=== PATIENT | male | born 1930 | race Caucasian/White ===

== ENCOUNTER 2017-08-06 15:31 | Emergency (ER) | payer MEDICARE, BC, OTHER ==
[~2017-08-06] VITALS: Ht 182.9 cm; Wt 90.0 kg
[~2017-08-06 15:31] MED LIST: ASPI-1071 PO; COU1T PO; COU5T PO; CYCL5TAB PO; DOCU-28 PO; FINA5TAB11 PO; FLO0.4C PO; MEMA5TAB PO; OLME5TAB3 PO; OXYB5TAB11 PO; SENN-139 PO; SIMV20TA5 PO; SOTA80TA69 PO; [UNRECOGNIZED DRUG - CODE]
[2017-08-06] MEDS ORDERED: fentaNYL/PF 50MCG/1 ML 2ML syringe IV ONE (15:50)
[2017-08-06] MEDS ORDERED: TETanus/Pertussis (Acell)/Diphther VAC/PF (Tdap-Adult) 0.5ml syringe IM ONE (15:55)
[2017-08-06] MEDS ORDERED: LIDOcaine 1.5% w/epinephrine 1:200,000 5ml ampul IJ ONE (17:25)
[2017-08-06] MEDS ORDERED: HYDR-3965 PO (19:33)
[2017-08-06] MEDS ORDERED: WHEE1EAC12 MC (19:43)
[2017-08-06 20:14] VITALS: BP 160/64
== END 2017-08-06 20:18 | disposition home or self-care (01) ==
LOC: ER 15:31
DX: S42.291A Other displaced fracture of upper end of right humerus, initial encounter for closed fracture (principal); I10 Essential (primary) hypertension; G89.29 Other chronic pain; Z86.73 Personal history of transient ischemic attack (TIA), and cerebral infarction without residual deficits; Z98.890 Other specified postprocedural states; Z95.0 Presence of cardiac pacemaker; W05.0XXA Fall from non-moving wheelchair, initial encounter; Y93.89 Activity, other specified; Y92.89 Other specified places as the place of occurrence of the external cause; Y99.8 Other external cause status; Z79.82 Long term (current) use of aspirin; Z79.01 Long term (current) use of anticoagulants; Z79.899 Other long term (current) drug therapy
CPT/HCPCS: 12001; 70450; 72125; 72170; 73030; 73070; 90715; 96374; 99284; A4565; A6449; J3010; J3490